=== PATIENT | female | born 1985 | race Hispanic/Latino ===

== ENCOUNTER 2017-11-01 19:07 | Emergency (ER) | payer OTHER ==
[2017-11-01 19:14] VITALS: BP 130/81; PULSE 94; RESP 16; TEMP 97.8; O2SAT 99
--- NOTE | 2017-11-01 19:33 | ED PDOC ---
HPI: Skin/Bite Injury Time Seen by Provider: 11/01/17 19:14 Chief Complaint (Nursing): Bite Chief Complaint (Provider): Insect Bite History Per: Patient Additional Complaint(s): 31 year old female presents to the emergency department with rash on right leg. Patient states that she was bitten by an insect 2 weeks ago and initially she noticed a red dot and some itching. She further reports that after a few days she noticed that the itching subsided but a red rash was now formed around the dot. Patient states that she is unsure of what insect bit her. Denies fever, chills. PMD: Ansley Polk Past Medical History Reviewed: Historical Data, Nursing Documentation, Vital Signs Vital Signs: Last Vital Signs Temp 97.8 F 11/01/17 19:09 Pulse 94 H 11/01/17 19:09 Resp 16 11/01/17 19:09 BP 130/81 11/01/17 19:09 Pulse Ox 99 11/01/17 19:44 - Medical History PMH: No Chronic Diseases - Surgical History Surgical History: No Surg Hx - Family History Family History: States: No Known Family Hx - Living Arrangements Living Arrangements: With Family - Social History Current smoker - smoking cessation education provided: No Ex-Smoker (has not smoked in the last 12 months): No Alcohol: Social Drugs: Denies - Home Medications Home Medications: Ambulatory Orders Medication Instructions Recorded Doxycycline Monohydrate 100 mg PO BID #28 tablet 11/01/17 - Allergies Allergies/Adverse Reactions: Allergies Allergy/AdvReac Type Severity Reaction Status Date / Time Sulfa (Sulfonamide Allergy RASH Verified 11/01/17 19:10 Antibiotics) Review of Systems ROS Statement: Except As Marked, All Systems Reviewed And Found Negative Constitutional: Negative for: Fever, Chills Skin: Positive for: Rash (red itchy rash on lower leg) Physical Exam - Reviewed Nursing Documentation Reviewed: Yes Vital Signs Reviewed: Yes - Physical Exam Appears: Positive for: Non-toxic, No Acute Distress Skin: Positive for: Normal Color, Warm, Dry, Rash (localized erythematous circular (approx 4 cm in diameter) rash to right dominguez with central macular papular region, no blanching or "bullseye" appearance, no active drainage, non- cellulitic) Eye Exam: Positive for: Normal appearance Cardiovascular/Chest: Positive for: Regular Rate, Rhythm Respiratory: Positive for: Normal Breath Sounds Extremity: Positive for: Normal ROM Neurologic/Psych: Positive for: Alert, Oriented, Gait (steady) - Laboratory Results Urine POC: Negative - ECG O2 Sat by Pulse Oximetry: 99 (RA) Pulse Ox Interpretation: Normal Medical Decision Making Medical Decision Makin Initial Impression 31 year old female presenting with rash from insect bite Initial Plan: * Upreg * Lyme disease, EIA W/RFL WB Patient will be treated empirically with doxycycline. Lyme titer sent. Patient has follow up with PMD next week. Documented by Yasmine South acting as a scribe for Marcia Barros PA-C. All medical record entries made by the Scribe were at my direction and personally dictated by me. I have reviewed the chart and agree that the record accurately reflects my personal performance of the history, physical exam, medical decision making, and the department course for this patient. I have also personally directed, reviewed, and agree with the discharge instructions and disposition. Disposition - Clinical Impression Clinical Impression: Insect bite - wound - Patient ED Disposition Is Patient to be Admitted: No Counseled Patient/Family Regarding: Studies Performed, Diagnosis, Need For Followup, Rx Given - Disposition Referrals: Ansley Kaye MD [Medical Doctor] - Disposition: Routine/Home Disposition Time: 20:14 Condition: STABLE Additional Instructions: KEEP AREA CLEAN AND DRY. DO NOT APPLY ANY TOPICAL CREAMS. TAKE RX MED DIRECTED. FOLLOW UP SCHEDULED NEXT WEEK WITH YOUR PRIMARY CARE DOCTOR. Prescriptions: Doxycycline Monohydrate 100 mg PO BID #28 tablet Instructions: Insect Bites and Stings Forms: [employer] (French)
== END 2017-11-01 20:33 | disposition home or self-care (01) ==
LOC: H.ER 19:07
DX: S80.861A Insect bite (nonvenomous), right lower leg, initial encounter (principal); W57.XXXA Bitten or stung by nonvenomous insect and other nonvenomous arthropods, initial encounter